=== PATIENT | female | born 1975 ===

== ENCOUNTER 2024-08-23 08:45 | Inpatient (IN) | payer OTHER ==
[~2024-08-23] VITALS: Ht 157.5 cm; Wt 90.7 kg
[2024-08-23] MEDS ORDERED: TOPROL XL100 M1 PO (09:57)
[2024-08-23] MEDS ORDERED: AVAPRO150 MG PO (09:58)
[2024-08-23] MEDS ORDERED: MOUNJARO10 MG/0.5 SQ (09:59)
[2024-08-23 10:03] VITALS: BP 116/77
[2024-08-23 10:06] VITALS: BP 118/78
[2024-08-23 10:59] LABS: BASO % 0.6 % (0.1-1.2); EOS # 0.15 (0.04-0.54); EOS % 2.2 % (0.7-7.0); HEMATOCRIT 37.5 % (34.1-44.9); HEMOGLOBIN 12.1 g/dL (11.2-15.7); LYMPH # 1.79 (1.18-3.74); LYMPH % 26.7 % (19.3-53.1); MEAN CORPUSCULAR HEMOGLOBIN 27.2 pg (25.6-32.2); MONO # 0.56 (0.24-0.82); MONO % 8.3 % (4.7-12.5); NEUT # 4.16 (1.56-6.13); NEUT % 62.1 % (34.0-71.1); PH,URINE 5.5 (5.0-8.0); PLATELET COUNT 267 K/uL (163-369); RED BLOOD COUNT 4.45 M/uL (3.93-5.22); RED CELL DISTRIBUTION WIDTH 14.3 % (11.6-14.4); URINE APPEARANCE Clear; URINE BILIRRUBIN Negative (NEGATIVE); URINE BLOOD Large; URINE COLOR Orange; URINE GLUCOSE Negative (NEGATIVE); URINE KETONE Negative (NEGATIVE); URINE LEUKOCYTE Small; URINE NITRATE Negative; URINE PROTEIN Trace (NEGATIVE); URINE UROBILINOGEN 0.2 E.U./dl
[2024-08-23 11:03] LABS: URINE BACTERIA 78.3 uL (0.0-1933); URINE EPITHELIAL CELLS 3.3 uL (0.0-38.8); URINE RBC 7962.7 uL (0.0-20.8); URINE WBC 33.9 uL (0.0-23.2)
[2024-08-23 11:19] LABS: URINE CAST 0.14 uL (0.0-1.40)
[2024-08-23 11:33] LABS: PARTIAL THROMBOPLASTIN TIME 28.3 SECONDS (22.0-34.0); PROTHROMBIN TIME 10.9 SECONDS (9.0-11.5)
[2024-08-23 11:46] LABS: ALBUMIN 3.3 gm/dL (3.4-5.0); BILIRUBIN TOTAL 0.3 mg/dL (0.3-1.2); CALCIUM 8.6 mg/dL (8.5-10.1); CREATININE SERUM 0.48 mg/dL (0.55-1.02); GFR 137.46; GLOBULINA 3.6 G/DL (2.4-3.5); POTASSIUM 4.02 mEq/L (3.5-5.1); TOTAL PROTEIN 6.9 gm/dL (6.4-8.2)
[2024-08-23 13:44] LABS: RH POSITIVE
[2024-08-26] MEDS ORDERED: CEFAZOLIN SODIUM 1,000 MG VIAL ONE (09:41)
[2024-08-26] MEDS ORDERED: POVIDONE-IODINE 118 ML BOTT TOP ONE ×2 (13:56→14:15)
[2024-08-26] MEDS ORDERED: CEFAZOLIN SODIUM 1,000 MG VIAL IV ONE (14:15)
[2024-08-26] MEDS ORDERED: SUGAMMADEX SODIUM 200 MG/2 ML VIAL IV ONE (16:16)
[2024-08-26] MEDS ORDERED: RINGERS SOLUTION,LACTATED 1,000 ML IV SCH (16:45)
[2024-08-26] MEDS ORDERED: MEPERIDINE HCL/PF 50 MG/ML VIAL IM PRN (16:45)
[2024-08-26] MEDS ORDERED: PROMETHAZINE HCL 50 MG/ML AMPUL IM PRN (16:45)
[2024-08-26] MEDS ORDERED: MORPHINE SULFATE 4 MG/ML VIAL IV ONE (18:05)
[2024-08-26] MEDS ORDERED: ONDANSETRON HCL 2 MG/ML VIAL ONE (18:09)
[2024-08-26 19:56] VITALS: BP 116/77
[2024-08-26] MEDS ORDERED: KETOROLAC TROMETHAMINE 30 MG VIAL IV SCH (21:00)
[2024-08-26] MEDS ORDERED: MORPHINE SULFATE 4 MG/ML CARTRIDGE IV PRN (21:15)
[2024-08-26] MEDS ORDERED: ONDANSETRON HCL 2 MG/ML VIAL IV PRN (21:15)
[2024-08-27 01:43] VITALS: BP 101/60
[2024-08-27 06:19] VITALS: BP 117/66
[2024-08-27 08:57] VITALS: BP 126/65
[2024-08-27 10:51] LABS: BASO % 0.2 % (0.1-1.2); EOS # 0.03 (0.04-0.54); EOS % 0.3 % (0.7-7.0); HEMATOCRIT 34.3 % (34.1-44.9); LYMPH # 2.29 (1.18-3.74); LYMPH % 20.2 % (19.3-53.1); MEAN CORPUSCULAR HEMOGLOBIN 26.8 pg (25.6-32.2); MONO # 0.92 (0.24-0.82); MONO % 8.1 % (4.7-12.5); NEUT # 8.02 (1.56-6.13); NEUT % 70.9 % (34.0-71.1); PLATELET COUNT 289 K/uL (163-369); RED BLOOD COUNT 4.11 M/uL (3.93-5.22); RED CELL DISTRIBUTION WIDTH 14.6 % (11.6-14.4)
[2024-08-27 12:48] VITALS: BP 119/76
[2024-08-27] MEDS ORDERED: FAMOTIDINE/PF 20 MG in 0.9 % SODIUM CHLORIDE 8 ML IV PUSH SCH (12:50)
[2024-08-27] MEDS ORDERED: FAMOtidine 20 MG TABLET PO SCH (13:15)
[2024-08-27] MEDS ORDERED: IBUprofen 600 MG TABLET PO PRN (13:15)
[2024-08-27 15:58] VITALS: BP 128/83
[2024-08-28 01:09] VITALS: BP 117/68
[2024-08-28 08:00] VITALS: BP 125/80
== END 2024-08-28 15:19 | disposition home or self-care (01) | DRG 743 ==
LOC: O/R 08-26 08:08 → SURH 08-26 08:45 → OB/GYN 08-26 18:04
PROVIDERS: ADMIT Obstetrics & Gynecology; ATTEND Obstetrics & Gynecology
PROC: 0UT70ZZ Resection of Bilateral Fallopian Tubes, Open Approach (ICD-10-PCS; 2024-08-26)
PROC: 0UT90ZZ Resection of Uterus, Open Approach (ICD-10-PCS; principal; 2024-08-26 17:15)
DX: D25.1 Intramural leiomyoma of uterus (principal); N80.03 Adenomyosis of the uterus; N72 Inflammatory disease of cervix uteri; D25.2 Subserosal leiomyoma of uterus